=== PATIENT | female | born 1995 | race Caucasian/White ===

== ENCOUNTER 2019-02-13 03:16 | Emergency (ER) | payer BC ==
--- NOTE | 2019-02-13 03:28 | ER Report ---
History and Physical Time Seen By MD: 03:25 Hx. of Stated Complaint: ABDOMINAL PAIN THAT STARTED TONIGHT HPI/ROS CHIEF COMPLAINT: Epigastric pain HISTORY OF PRESENT ILLNESS: This is a 23-year-old female. She is having epi gastric pain. This started tonight. She is had 2 episodes of vomiting and ongoing nausea. Pain does not radiate anywhere. Started last night after eating and seemed to worsen through the evening. Has never had pain like this before, no history of ulcer disease or gastritis in the past. No history of pancreatitis. No history of liver or gallbladder problems. She denies any fevers or chills. Her bowels have been normal. No trouble with urination. Pain does not radiate. Seems to worsen when she lays down flat. She did try taking Mg has not been helpful. Allergies: Coded Allergies: Penicillins (Verified Allergy, Intermediate, RASH, 02/13/19) Home Meds Active Scripts Ondansetron 4 Mg Odt (ONDANSETRON 4 MG ODT) 4 Mg Tab.rapdis, 4 MG PO ONCE PRN for NAUSEA/VOMITING, #20 TAB 0 Refills Prov:MERT MCCLAIN MD 02/13/19 Reviewed Nurses Notes: Yes Constitutional Vital Sign - Last 24 Hours 02/13/19 02/13/19 02/13/19 02/13/19 03:20 03:23 03:30 03:45 Temp 98.9 Pulse 90 Resp 14 B/P (MAP) 116/76 (89) 116/76 109/75 (86) 101/59 (73) Pulse Ox 96 O2 Delivery Room Air 02/13/19 02/13/19 02/13/19 02/13/19 04:00 04:05 04:15 04:30 Pulse 87 B/P (MAP) 111/73 (86) 104/89 (94) 106/69 (81) Pulse Ox 94 02/13/19 02/13/19 02/13/19 02/13/19 04:35 04:40 04:45 05:00 Pulse 85 82 B/P (MAP) 97/60 (72) 96/70 (79) Pulse Ox 95 96 02/13/19 02/13/19 02/13/19 05:10 05:15 05:30 Pulse 87 80 B/P (MAP) 95/62 (73) 98/59 (72) Pulse Ox 94 93 Intake and Output 02/12/19 02/12/19 02/13/19 15:02 23:02 07:02 Intake Total 1000 ml Balance 1000 ml Physical Exam General Appearance: The patient is alert. Having some acute distress because of the pain. Non-toxic in appearance. Eyes: Pupils are equal, round. No pallor, injection or icterus. ENT: Mucous membranes are moist. Normal oral mucosa. Posterior oropharynx is normal. Neck: Supple and non tender. Respiratory: Lungs are clear to auscultation. Cardiovascular: Regular rate and rhythm. No murmurs, gallops or rubs. Normal capillary refill. Gastrointestinal: Abdomen is soft, nontender for mostly abdomen but there is discomfort in the epigastric area. Negative Kemp sign Nondistended. No rebound or guarding. Normal active bowel sounds. No costovertebral angle tenderness with percussion. Neurological: Alert and oriented x3. No focal neurologic deficits Skin: Warm and dry. No rashes. Musculoskeletal: Extremities are nontender. DIFFERENTIAL DIAGNOSIS: After history and physical exam, differential diagnosis was considered for epigastric pain including but not limited to peptic ulcer disease, pancreatitis, and gastroenteritis. Medical Decision Making Data Points Result Diagram: 02/13/19 0337 02/13/19 0337 Laboratory Hematology Test 02/13/19 03:37 White Blood Count 15.0 k/uL (4.5-11.0) H Red Blood Count 4.85 M/uL (4.17-5.56) Hemoglobin 14.6 g/dL (12.0-16.0) Hematocrit 42.8 % (34.0-47.0) Mean Corpuscular Volume 88.2 fL (80.0-96.0) Mean Corpuscular Hemoglobin 30.2 pg (26.0-33.0) Mean Corpuscular Hemoglobin Concent 34.2 g/dL (32.0-36.0) Red Cell Distribution Width 12.7 % (11.5-14.5) Platelet Count 160 K/uL (150-450) Mean Platelet Volume 11.2 fL (7.2-11.1) H Neutrophils (%) (Auto) 84.2 % (39.4-72.5) H Lymphocytes (%) (Auto) 6.9 % (17.6-49.6) L Monocytes (%) (Auto) 8.2 % (4.1-12.4) Eosinophils (%) (Auto) 0.4 % (0.4-6.7) Basophils (%) (Auto) 0.3 % (0.3-1.4) Nucleated RBC Relative Count (auto) 0.0 /100WBC Neutrophils # (Auto) 12.6 K/uL (2.0-7.4) H Lymphocytes # (Auto) 1.0 K/uL (1.3-3.6) L Monocytes # (Auto) 1.2 K/uL (0.3-1.0) H Eosinophils # (Auto) 0.1 K/uL (0.0-0.5) Basophils # (Auto) 0.0 K/uL (0.0-0.1) Nucleated RBC Absolute Count (auto) 0.01 K/uL Chemistry Test 02/13/19 03:37 Sodium Level 140 mmol/L (137-145) Potassium Level 3.4 mmol/L (3.5-5.0) Chloride Level 103 mmol/L (98-107) Carbon Dioxide Level 24 mmol/L (22-31) Blood Urea Nitrogen 14 mg/dl (7-18) Creatinine 1.10 mg/dl (0.52-1.04) Glomerular Filtration Rate Calc > 60.0 Random Glucose 105 mg/dl (75-110) Calcium Level 9.3 mg/dl (8.4-10.2) Total Bilirubin 0.7 mg/dl (0.2-1.3) Aspartate Amino Transf (AST/SGOT) 27 U/L (0-35) Alanine Aminotransferase (ALT/SGPT) 36 U/L (0-56) Alkaline Phosphatase 85 U/L (0-126) Total Protein 7.5 g/dl (6.3-8.2) Albumin 4.5 g/dl (3.5-5.0) Amylase Level 108 U/L (0-110) Lipase 89 U/L (23-300) Human Chorionic Gonadotropin, Qual Negative (NEGATIVE) Serology Test 02/13/19 03:37 Helicobacter pylori IgG Antibody Negative (NEGATIVE) EKG/Imaging Imaging ACUTE ABDOMEN SERIES 3 VIEW HISTORY: Epigastric abdominal pain for one day. COMPARISON: None. TECHNIQUE: PA upright view of the chest, AP supine and AP upright views of the abdomen. FINDINGS: CHEST: The lungs are clear. There is no pneumothorax or pleural effusion. The cardiac and mediastinal silhouettes are within normal limits. Bones and soft tissues are unremarkable. ABDOMEN: The distribution of bowel gas is normal, with bowel in all four quadrants as well as centrally. No free air. No dilated loops of bowel. There is an IUD. No acute osseous abnormality. There is a slight rightward curvature of the lumbar spine with the apex centered at L4-5. IMPRESSION: 1. No acute cardiopulmonary process. 2. Normal bowel gas pattern without obstruction. Report Dictated By: Breana Barba at 02/13/2019 4:32 AM ED Course/Re-evaluation Clinical Indication for ER IV: Hydration, IV Access ED Course Patient received a liter of fluid, GI cocktail and Protonix as well as Zofran. She is feeling much better now. Imaging with abdominal 3-view was negative. Labs with mild leukocytosis, likely from vomiting, and no other problems except potassium that was a hair low and some dehydration. Discussed likely diagnosis of gastritis and treatment. If worsening, would recommend coming back for re- evaluation. Decision to Disposition Date: Feb 13, 2019 Decision to Disposition Time: 05:20 Depart Departure Latest Vital Signs Vital Signs Date Time Temp Pulse Resp B/P (MAP) Pulse Ox O2 Delivery O2 Flow Rate FiO2 02/13/19 05:30 98/59 (72) 02/13/19 05:15 80 93 02/13/19 03:23 98.9 14 Room Air Impression: Primary Impression: Gastritis Condition: Improved Disposition: HOME OR SELF-CARE New Scripts Ondansetron 4 Mg Odt (ONDANSETRON 4 MG ODT) 4 Mg Tab.rapdis 4 MG PO ONCE PRN for NAUSEA/VOMITING, #20 TAB 0 Refills Prov: MERT MCCLAIN MD 02/13/19 Patient Instructions: Diet for Stomach Ulcers and Gastritis (ED), Gastritis (ED) Additional Instructions: It appears that you likely have gastritis, inflammation in the stomach. We recommend rest and fluid intake. Start taking Zantac 150mg twice a day for Pepcid 20mg twice a day. Both are available over the counter in generic. Avoid spicy foods, acidic foods, alcohol, coffee, tea, chocolate or other foods that irritate the stomach. You can look up bland diet recommendations on line. Search for things like a B.R.A.T. diet. Return for re-evaluation or see your primary care doctor if worsening. We are providing a prescription for Zofran 4mg, one every 6 hours as needed for nausea or vomiting. Problem Qualifiers Primary Impression: Gastritis Gastritis type: unspecified gastritis Chronicity: acute Gastritis bleeding: without bleeding Qualified Codes: K29.00 - Acute gastritis without bleeding MERT MCCLAIN MD Feb 13, 2019 03:28
[2019-02-13] MEDS ORDERED: PANTOPRAZOLE SOD 40 MG IV VIAL IVP ONE (03:55)
[2019-02-13] MEDS ORDERED: NS(*) 0.9% 1000 ML BAG 1,000 ML IV ONE (03:55)
[2019-02-13] MEDS ORDERED: MAG HYD/AL HYD/SIMETH 30ML UDC PO ONE (03:55)
[2019-02-13] MEDS ORDERED: LIDOCAINE 2% VISC SLN 15ML UDC PO ONE (03:55)
[2019-02-13] MEDS ORDERED: ATRO/SCOPOL/HYOSCY/PB 5 ML ELX PO ONE (03:55)
[2019-02-13] MEDS ORDERED: ONDANSETRON 4 MG/2 ML VIAL IVP ONE (03:55)
[2019-02-13 04:01] LABS: PLATELET COUNT, AUTOMATED 160 K/uL (150-450)
--- NOTE | 2019-02-13 04:41 | RADIOLOGY IMAGING REPORT ---
FACILITY: [facility] PATIENT NAME: Tran Nguyen : 1995 MR: [id number] V: [id number] EXAM DATE: ORDERING PHYSICIAN: MERT MCCLAIN TECHNOLOGIST: Location: [facility] Patient: Tran Nguyen : 1995 Visit/Account:[id number] Date of Sevice: 02/13/2019 ACUTE ABDOMEN SERIES 3 VIEW HISTORY: Epigastric abdominal pain for one day. COMPARISON: None. TECHNIQUE: PA upright view of the chest, AP supine and AP upright views of the abdomen. FINDINGS: CHEST: The lungs are clear. There is no pneumothorax or pleural effusion. The cardiac and mediastinal silhouettes are within normal limits. Bones and soft tissues are unremarkable. ABDOMEN: The distribution of bowel gas is normal, with bowel in all four quadrants as well as central ly. No free air. No dilated loops of bowel. There is an IUD. No acute osseous abnormality. There is a slight rightward curvature of the lumbar sp ine with the apex centered at L4-5. IMPRESSION: 1. No acute cardiopulmonary process. 2. Normal bowel gas pattern without obstruction. Report Dictated By: Breana Barba at 02/13/2019 4:32 AM Report E-Signed By: Breana Barba at 02/13/2019 4:34 AM WSN:[id number]
[2019-02-13] MEDS ORDERED: ONDA4TAB9 PO (05:26)
[2019-02-13 05:30] VITALS: BP 98/59
[2019-02-13] MEDS ORDERED: ONDANSETRON 4 MG ODT TH SL ONE (05:30)
== END 2019-02-13 05:43 | disposition home or self-care (01) ==
LOC: ER 03:30
DX: K29.00 Acute gastritis without bleeding (principal)
CPT/HCPCS: 74022; 82150; 83690; 84703; 85025; 86677; 96361; 96374; 96375; 99283; C9113; J2405; J7030; S0119; 82040; 82247; 82310; 82374; 82435; 82565; 82947; 84075; 84132; 84155; 84295; 84450; 84460; 84520